=== PATIENT | male | born 1955 | race Caucasian/White ===

== ENCOUNTER 2017-01-05 12:51 | Day surgery (SDC) | payer OTHER ==
[~2017-01-05] VITALS: Ht 172.7 cm; Wt 84.8 kg
[~2017-01-05 12:51] MED LIST: GABA300C16 PO; HYDR-762 PO; OMEP40CA3 PO; ONDA4TAB8 PO
[2017-01-05 15:22] VITALS: Ht 172.7 cm; Wt 84.8 kg
[2017-01-05 16:14] VITALS: BP 164/98; PULSE 58; RESP 11
[2017-01-05] MEDS ORDERED: MIDAZOLAM 1 MG/ML 2 ML INJ ONE ×3 (17:29→17:30)
[2017-01-05] MEDS ORDERED: FENTAnyl 50 MCG/ML VIAL ONE (17:30)
[2017-01-05 17:44] VITALS: BP 152/97; PULSE 62; RESP 12
--- NOTE | 2017-01-05 18:21 | OPR ---
Date/Time of Note Date/Time of Note DATE: 01/05/17 TIME: 18:18 Operative Report Preoperative Diagnosis CRC screening Postoperative Diagnosis * 3 mm sessile polyp in the ascending colon. Ablated * Moderate-sized internal hemorrhoids Operation/Procedure Performed Colonoscopy with polyp ablation Surgeon: RONNIE VIZCARRA MD Anesthesia: other (Moderate sedation) Specimens Colon polyp Grafts/Implants None Complications: None RONNIE VIZCARRA MD Jan 05, 2017 18:20
--- NOTE | 2017-01-05 18:22 | OPR ---
Date/Time of Note Date/Time of Note DATE: 01/05/17 TIME: 18:21 Operative Report Preoperative Diagnosis Dyspepsia/reflux symptoms Postoperative Diagnosis Moderate distal esophagitis. Rule out Mclaughlin's esophagus. Biopsies obtained Moderate gastritis. Rule out H. pylori infection. Biopsies obtained Operation/Procedure Performed EGD with biopsies Surgeon: RONNIE VIZCARRA MD Anesthesia: other (Moderate sedation) Specimens Esophagus Gastric body and antrum Grafts/Implants None Complications: None RONNIE VIZCARRA MD Jan 05, 2017 18:22
== END 2017-01-05 18:05 | disposition home or self-care (01) ==
LOC: GIL 12:51
PROVIDERS: ATTEND Internal Medicine Gastroenterology
DX: Z12.11 Encounter for screening for malignant neoplasm of colon (principal); K63.5 Polyp of colon; K64.8 Other hemorrhoids; K20.8 Other esophagitis; K29.60 Other gastritis without bleeding
CPT/HCPCS: 43239; 45380; 88305; 88312; 88313; J2250; J3010; Z7610